=== PATIENT | female | born 1975 | race Caucasian/White ===

== ENCOUNTER 2021-08-22 08:46 | Day surgery (SDC) | payer OTHER ==
[~2021-08-22] VITALS: Ht 165.1 cm; Wt 103.4 kg
[2021-08-22] MEDS ORDERED: Budeprion Xl300 MG (09:22)
[2021-08-22] MEDS ORDERED: Cymbalta60 MG (09:22)
[2021-08-22] MEDS ORDERED: TOPI50 (09:23)
[2021-08-22] MEDS ORDERED: ESZO2 (09:23)
[2021-08-22] MEDS ORDERED: MYRBETRIQ25 MG (09:24)
--- NOTE | 2021-08-22 10:29 | NUR ---
08/22/21 1029 Eloisa Benedict 1 MG EPI ADDED TO THE FIRST BAG OF LR PER ORDER FOR IRRIGATION AT [facility].
--- NOTE | 2021-08-22 11:28 | NUR ---
08/22/21 1128 DOMENICA JOSEPH PT GIVEN 25MCG OF FENTANYL FOR PAIN 10/10 PT ALSO GIVEN PERCOCET 5MG PO. SON HERE W/PATIENT.
== END 2021-08-22 12:10 | disposition home or self-care (01) ==
LOC: ORSCSDS 08:46
PROVIDERS: Orthopaedic Surgery
PROC: 0SBD4ZZ Excision of Left Knee Joint, Percutaneous Endoscopic Approach (ICD-10-PCS; principal; 2021-08-22 10:00)
DX: S83.232A Complex tear of medial meniscus, current injury, left knee, initial encounter (principal); M22.42 Chondromalacia patellae, left knee; Z86.73 Personal history of transient ischemic attack (TIA), and cerebral infarction without residual deficits; Z79.899 Other long term (current) drug therapy
CPT/HCPCS: A9270; J0171; J0690; J1100; J1885; J2250; J2405; J2704; J3010; J7120

== ENCOUNTER → 2022-10-05 | Outpatient (CLI) | payer OTHER ==
[~2022-10-05] MED LIST: Budeprion Xl300 MG; Cymbalta60 MG; ESZO2; MYRBETRIQ25 MG; TOPI50
[2022-10-05 19:47] LABS: BASOPHILS ABSOLUTE AUTO 0.05 K/mm3 (0.00-0.23); BASOPHILS PERCENT AUTO 1 % (0-2); EOSINOPHILS ABSOLUTE AUTO 0.14 K/mm3 (0.00-0.68); EOSINOPHILS PERCENT AUTO 1 % (0-6); Hematocrit 39.6 % (33.0-51.0); IMMATURE GRAN ABSOLUTE AUTO 0.02 K/mm3 (0.00-0.10); IMMATURE GRAN PERCENT AUTO 0 % (0-1); LYMPHOCYTES ABSOLUTE AUTO 3.35 K/mm3 (0.84-5.20); LYMPHOCYTES PERCENT AUTO 34 % (21-46); MONOCYTES ABSOLUTE AUTO 0.81 K/mm3 (0.16-1.47); MONOCYTES PERCENT AUTO 8 % (4-13); Mean Corpuscular HGB 29.3 pg (26.0-34.0); Mean Corpuscular HGB Conc 32.8 g/dL (31.5-36.5); Mean Corpuscular Volume 89 fL (80-100); Mean Platelet Volume 11.2 fL (9.1-12.4); NEUTROPHILS ABSOLUTE AUTO 5.37 K/mm3 (1.96-9.15); NEUTROPHILS PERCENT AUTO 55 % (41-73); Platelet Count 269 K/mm3 (150-400); RDW Coefficient Variation 13.3 % (11.7-14.2); RDW Standard Deviation 44.1 fL (35.1-46.3); Red Blood Cell Count 4.43 M/mm3 (3.80-5.20); White Blood Cell Count 9.74 K/mm3 (4.00-11.30)
[2022-10-05 20:04] LABS: Albumin, Blood 3.5 g/dL (3.4-5.0); Albumin/Globulin Ratio 1.1 (0.8-1.8); Bilirubin, Total 0.4 mg/dL (0.1-1.0); Bun/Creatinine Ratio 13.9 (12.0-20.0); Calcium, Blood 9.3 mg/dL (8.5-10.1); Creatinine, Blood 0.79 mg/dL (0.40-1.00); Globulin, Blood 3.1 g/dL (2.2-4.0); Potassium, Blood 3.6 mmol/L (3.5-5.5); Total Protein, Blood 6.6 g/dL (6.4-8.2)
== END ==
LOC: LAB 15:09 → LAB SHORT 15:09
PROVIDERS: Family Medicine
DX: R58 Hemorrhage, not elsewhere classified (principal)
CPT/HCPCS: 80053; 85025

== ENCOUNTER 2023-01-07 12:20 | Day surgery (SDC) | payer OTHER ==
[~2023-01-07] VITALS: Ht 165.1 cm; Wt 100.5 kg
[2023-01-07] MEDS ORDERED: IBUP100S (13:35)
[2023-01-07] MEDS ORDERED: TRAZ50 (13:40)
[2023-01-07] MEDS ORDERED: BUTALB-ACETAMI1 EAC7 (13:40)
[2023-01-07] MEDS ORDERED: ASPI81CH (13:40)
[2023-01-07] MEDS ORDERED: CYCLOBENZAPRINE5 MG (13:40)
[2023-01-07] MEDS ORDERED: MELO7.5 (13:41)
[2023-01-07] MEDS ORDERED: MYRBETRIQ8 MG/1 ML (13:41)
[2023-01-07] MEDS ORDERED: NURTEC ODT75 MG (13:41)
[2023-01-07 16:12] VITALS: BP 123/71
--- NOTE | 2023-01-07 16:12 | NUR ---
01/07/23 1612 Annelise Roberts IV DC'D CATH INTACT. PT TOLERATED WELL. GAUZE/COBAN IN PLACE
== END 2023-01-07 16:08 | disposition home or self-care (01) ==
LOC: ORSCSDS 12:20
PROVIDERS: Internal Medicine Gastroenterology
PROC: 0DBH8ZX Excision of Cecum, Via Natural or Artificial Opening Endoscopic, Diagnostic (ICD-10-PCS; principal; 2023-01-07 13:30)
DX: Z12.11 Encounter for screening for malignant neoplasm of colon (principal); K63.5 Polyp of colon; E78.5 Hyperlipidemia, unspecified; Z87.891 Personal history of nicotine dependence; Z79.82 Long term (current) use of aspirin; Z79.899 Other long term (current) drug therapy
CPT/HCPCS: 88305; J0461; J2001; J2250; J2405; J2704; J7120; Q9968

== ENCOUNTER → 2023-08-03 | Outpatient (CLI) | payer OTHER ==
[~2023-08-03] MED LIST changes: +ASPI81CH; +BUTALB-ACETAMI1 EAC7; +CYCLOBENZAPRINE5 MG; +IBUP100S; +MELO7.5; +MYRBETRIQ8 MG/1 ML; +NURTEC ODT75 MG; +TRAZ50
== END ==
LOC: LAB SHORT 09:52 → LAB 09:52
DX: J02.9 Acute pharyngitis, unspecified (principal)
CPT/HCPCS: 87081

== ENCOUNTER 2024-01-05 11:39 | Day surgery (SDC) | payer OTHER ==
[~2024-01-05] VITALS: Ht 165.1 cm; Wt 104.6 kg
[~2024-01-05 11:39] MED LIST changes: +Lactated Ringer's 1,000 ML IV ONE
[2024-01-05] MEDS ORDERED: Lactated Ringer's 1,000 ML IV ONE (12:55)
[2024-01-05] MEDS ORDERED: Midazolam HCl 1MG / ML 2ML Vial ONE ×2 (13:27→13:37)
[2024-01-05] MEDS ORDERED: TraMADol HCl 50 MG Tab ONE (15:08)
--- NOTE | 2024-01-05 15:21 | NUR ---
01/05/24 1521 Jackie Bright PT STATED THAT HER PAIN WAS AT A 5/10, HER R WRIST AND NECK WAS PAINFUL. PT RECEIVED 50MG PO TRAMADOL. PT DENIED ANY NAUSEA. PT ABLE TO TOLERATE SNACK, STRING CHEESE AND APPLESAUCE BEFORE TAKING PAIN PILL. PT STATED THAT SHE'D BE COMFORTABLE AT A 2/10. PT'S BP WAS 108/64, 75 PULSE, 95% SPO2 ON RA, BREATHES EVEN AND UNLABORED, 16RR. WCTM VS.
[2024-01-05 15:54] VITALS: BP 108/64
== END 2024-01-05 15:43 | disposition home or self-care (01) ==
LOC: ORSCSDS 11:39
PROVIDERS: Orthopaedic Surgery
PROC: 01N54ZZ Release Median Nerve, Percutaneous Endoscopic Approach (ICD-10-PCS; principal; 2024-01-05 13:30)
DX: G56.01 Carpal tunnel syndrome, right upper limb (principal); Z87.891 Personal history of nicotine dependence; F41.9 Anxiety disorder, unspecified; Z86.73 Personal history of transient ischemic attack (TIA), and cerebral infarction without residual deficits; E66.9 Obesity, unspecified; Z68.38 Body mass index [BMI] 38.0-38.9, adult; Z79.899 Other long term (current) drug therapy
CPT/HCPCS: A9270; J2250; J7120

== ENCOUNTER 2025-03-21 17:15 | Emergency (ER) | payer OTHER ==
[~2025-03-21] VITALS: Ht 165.1 cm; Wt 105.2 kg
[~2025-03-21 17:15] MED LIST changes: -AMOCLA875 PO; -ONDA4ODT MM
[2025-03-21] MEDS ORDERED: Ketorolac Tromethamine 15mg Vial IM ONE (18:25)
[2025-03-21] MEDS ORDERED: FentaNYL Citrate 50 MCG/ML 2 ML Injection IV ONE (19:45)
[2025-03-21] MEDS ORDERED: Ondansetron HCl 2 MG / ML 2ML Vial IV STA (20:32)
[2025-03-21 20:39] LABS: BASOPHILS ABSOLUTE AUTO 0.03 K/mm3 (0.00-0.23); BASOPHILS PERCENT AUTO 0 % (0-2); EOSINOPHILS ABSOLUTE AUTO 0.07 K/mm3 (0.00-0.68); EOSINOPHILS PERCENT AUTO 1 % (0-6); Hematocrit 42.6 % (33.0-51.0); Hemoglobin 13.8 g/dL (11.5-16.0); IMMATURE GRAN ABSOLUTE AUTO 0.02 K/mm3 (0.00-0.10); IMMATURE GRAN PERCENT AUTO 0 % (0-1); LYMPHOCYTES ABSOLUTE AUTO 3.40 K/mm3 (0.84-5.20); LYMPHOCYTES PERCENT AUTO 32 % (21-46); MONOCYTES ABSOLUTE AUTO 0.76 K/mm3 (0.16-1.47); MONOCYTES PERCENT AUTO 7 % (4-13); Mean Corpuscular HGB Conc 32.4 g/dL (31.5-36.5); Mean Corpuscular Volume 90 fL (80-100); NEUTROPHILS ABSOLUTE AUTO 6.22 K/mm3 (1.96-9.15); NEUTROPHILS PERCENT AUTO 59 % (41-73); NRBC ABSOLUTE 0.00 K/mm3 (0.00-0.02); NRBC Auto 0.0 /100 WBC (0.0-0.2); Platelet Count 301 K/mm3 (150-400); RDW Coefficient Variation 13.2 % (11.7-14.2); RDW Standard Deviation 43.7 fL (35.1-46.3)
[2025-03-21 21:12] LABS: Alanine Aminotransfer (ALT/SGP 20.0 U/L (12-78); Albumin, Blood 3.5 g/dL (3.4-5.0); Albumin/Globulin Ratio 1.1 (0.8-1.8); Anion Gap 9.0 mmol/L (3-11); Aspartate Aminotrans (AST/SGOT 13.0 U/L (12-37); Bilirubin, Total 0.3 mg/dL (0.1-1.0); Blood Urea Nitrogen 10.0 mg/dL (8-24); CO2, Blood 26.0 mmol/L (21-32); Calcium, Blood 8.9 mg/dL (8.5-10.1); Chloride, Blood 107.0 mmol/L (98-108); Creatinine, Blood 0.83 mg/dL (0.40-1.00); Globulin, Blood 3.3 g/dL (2.2-4.0); Glucose, Blood 106.0 mg/dL (70-99); Potassium, Blood 4.1 mmol/L (3.5-5.5); Sodium, Blood 138.0 mmol/L (136-145); Total Protein, Blood 6.8 g/dL (6.4-8.2)
[2025-03-21 21:30] VITALS: BP 111/60
[2025-03-21] MEDS ORDERED: AMOCLA875 PO (21:33)
[2025-03-21] MEDS ORDERED: ONDA4ODT MM (21:33)
[2025-03-21] MEDS ORDERED: RX Prepack 6 Tabs Oxycodone 5mg UD ONE (21:35)
== END 2025-03-21 21:58 | disposition home or self-care (01) ==
LOC: ER 17:15
PROVIDERS: Physician Assistant
DX: K57.32 Diverticulitis of large intestine without perforation or abscess without bleeding (principal)
CPT/HCPCS: 74177; 76857; 80053; 85025; 96372; 96374; 96375; 99284-25; A9270; J1885; J2405; J3010; Q9967

== ENCOUNTER → 2025-03-21 | Outpatient (CLI) | payer OTHER ==
[~2025-03-21] MED LIST changes: +AMOCLA875 PO; -Lactated Ringer's 1,000 ML IV ONE; +ONDA4ODT MM
[2025-03-21 15:56] LABS: BASOPHILS ABSOLUTE AUTO 0.04 K/mm3 (0.00-0.23); BASOPHILS PERCENT AUTO 0 % (0-2); EOSINOPHILS ABSOLUTE AUTO 0.07 K/mm3 (0.00-0.68); EOSINOPHILS PERCENT AUTO 1 % (0-6); Hematocrit 45.8 % (33.0-51.0); Hemoglobin 15.3 g/dL (11.5-16.0); IMMATURE GRAN ABSOLUTE AUTO 0.02 K/mm3 (0.00-0.10); IMMATURE GRAN PERCENT AUTO 0 % (0-1); LYMPHOCYTES ABSOLUTE AUTO 2.56 K/mm3 (0.84-5.20); LYMPHOCYTES PERCENT AUTO 24 % (21-46); MONOCYTES ABSOLUTE AUTO 0.84 K/mm3 (0.16-1.47); MONOCYTES PERCENT AUTO 8 % (4-13); Mean Corpuscular HGB Conc 33.4 g/dL (31.5-36.5); Mean Corpuscular Volume 87 fL (80-100); NEUTROPHILS ABSOLUTE AUTO 7.04 K/mm3 (1.96-9.15); NEUTROPHILS PERCENT AUTO 67 % (41-73); NRBC ABSOLUTE 0.00 K/mm3 (0.00-0.02); NRBC Auto 0.0 /100 WBC (0.0-0.2); Platelet Count 324 K/mm3 (150-400); RDW Coefficient Variation 13.4 % (11.7-14.2); RDW Standard Deviation 42.3 fL (35.1-46.3)
[2025-03-21 16:14] LABS: Alanine Aminotransfer (ALT/SGP 21.0 U/L (12-78); Albumin, Blood 3.9 g/dL (3.4-5.0); Albumin/Globulin Ratio 1.0 (0.8-1.8); Anion Gap 16.0 mmol/L (6-16); Aspartate Aminotrans (AST/SGOT 21.0 U/L (12-37); Bilirubin, Total 0.3 mg/dL (0.1-1.0); Blood Urea Nitrogen 10.0 mg/dL (8-24); CO2, Blood 28.0 mmol/L (21-32); Calcium, Blood 10.0 mg/dL (8.5-10.1); Chloride, Blood 102.0 mmol/L (98-108); Creatinine, Blood 0.91 mg/dL (0.40-1.00); Globulin, Blood 4.1 g/dL (2.2-4.0); Glucose, Blood 116.0 mg/dL (70-99); Potassium, Blood 4.5 mmol/L (3.5-5.5); Sodium, Blood 141.0 mmol/L (136-145); Total Protein, Blood 8.0 g/dL (6.4-8.2)
== END ==
LOC: LAB SHORT 15:52 → LAB 15:52
PROVIDERS: Family Medicine
DX: R10.32 Left lower quadrant pain (principal)
CPT/HCPCS: 80053; 85025